=== PATIENT | female | born 1960 | race Caucasian/White ===

== ENCOUNTER 2019-07-27 16:13 | Emergency (ER) | payer MEDICARE, OTHER ==
[~2019-07-27] VITALS: Ht 167.6 cm; Wt 86.2 kg
[~2019-07-27 16:13] MED LIST: DYRENIUM100 MG PO; FLAGYL500 MG PO; HTN MED; HYDROCODONE-AP1 EAC6 PO; OXYCONTIN30 MG PO; PHENERGAN25 MG RE; ZOLOFT
[2019-07-27] MEDS ORDERED: OXYCODONE HCL30 MG PO (16:33)
[2019-07-27] MEDS ORDERED: MIRTAZAPINE7.5 MG PO (16:34)
[2019-07-27] MEDS ORDERED: [UNRECOGNIZED DRUG - OTHER] PO (16:36)
[2019-07-27] MEDS ORDERED: FLEXERIL PO (16:36)
[2019-07-27] MEDS ORDERED: PREDNISONE 10 M10 M1 PO (16:55)
[2019-07-27] MEDS ORDERED: ACYCLOVIR 800800 MG PO (16:55)
[2019-07-27] MEDS ORDERED: NORCO 5-325 TA1 EAC1 PO (16:55)
[2019-07-27 17:05] VITALS: BP 160/80
== END 2019-07-27 17:06 | disposition home or self-care (01) ==
LOC: M.ERS 16:13
DX: B02.9 Zoster without complications (principal); I10 Essential (primary) hypertension; Z91.030 Bee allergy status; Z98.890 Other specified postprocedural states; Z90.49 Acquired absence of other specified parts of digestive tract; Z98.51 Tubal ligation status

== ENCOUNTER 2020-12-24 20:29 | Emergency (ER) | payer MEDICARE, OTHER ==
[~2020-12-24] VITALS: Ht 165.1 cm; Wt 95.3 kg
[~2020-12-24 20:29] MED LIST changes: +ACYCLOVIR 800800 MG PO; +FLEXERIL PO; +MIRTAZAPINE7.5 MG PO; +NORCO 5-325 TA1 EAC1 PO; +OXYCODONE HCL30 MG PO; +PREDNISONE 10 M10 M1 PO; +[UNRECOGNIZED DRUG - OTHER] PO
[2020-12-24] MEDS ORDERED: OMEPRAZOLE 20 M20 M1 PO (20:49)
[2020-12-24] MEDS ORDERED: DESYREL150 MG PO (20:49)
[2020-12-24] MEDS ORDERED: BENADRYL25 MG PO (20:49)
[2020-12-24 21:28] LABS: ABSOLUTE BASOPHILS 0.1 thou/uL (0.0-0.2); ABSOLUTE EOSINOPHILS 0.2 thou/uL (0.0-0.7); ABSOLUTE LYMPHOCYTES 3.1 thou/uL (0.8-5.3); ABSOLUTE MONOCYTES 0.4 thou/uL (0.0-1.2); ABSOLUTE NEUTROPHILS 2.7 thou/uL (1.6-8.1); BASOPHILS 0.8 %; EOSINOPHILS 2.7 %; HEMATOCRIT 45.1 % (37.0-47.0); HEMOGLOBIN 15.1 gm/dL (12.0-15.0); LYMPHOCYTES 48.3 %; MCH 30.4 pg (26.0-34.0); MCHC 33.6 g/dL (28.0-37.0); MCV 90.5 fL (80.0-100.0); MPV 7.5 fl. (7.2-11.1); NUCLEATED RBCS 0 /100WBC; PLATELET COUNT* 302 thou/uL (150-400); POLYS 42.2 %; RBC 4.98 mil/uL (4.20-5.00); RDW-CV 13.7 % (10.5-14.5); WBC 6.5 thou/uL (4.0-11.0)
[2020-12-24 21:38] LABS: CALCIUM 9.3 mg/dL (8.5-10.1); POTASSIUM 4.2 mmol/L (3.5-5.1)
[2020-12-24 21:43] LABS: ALBUMIN 3.5 g/dL (3.4-5.0); TOTAL BILIRUBIN 0.3 mg/dL (<0.1-1.0); TOTAL PROTEIN 6.6 g/dL (6.4-8.2)
[2020-12-24 22:38] LABS: URINE BILIRUBIN NEGATIVE (Negative); URINE BLOOD NEGATIVE (Negative); URINE CLARITY CLEAR; URINE COLOR YELLOW; URINE GLUCOSE-RANDOM NEGATIVE (Negative); URINE KETONES NEGATIVE (Negative); URINE NITRITE-REFLEX NEGATIVE (Negative); URINE PROTEIN NEGATIVE (Negative); URINE SPECIFIC GRAVITY >= 1.030 (1.005-1.030); URINE UROBILINOGEN 0.2 E.U./dl (0.2-1.0)
[2020-12-24 22:41] LABS: URINE LEUKOCYTES-REFLEX 2+ (Negative)
[2020-12-24 22:46] LABS: BACTERIA-REFLEX 1-9 Few /HPF (None Seen); MUCUS 0-3 Light strn/LPF (None Seen); SQUAMOUS >10 Many /LPF (0-3)
[2020-12-24 22:47] LABS: CRYSTALS None Seen /LPF (None Seen); HYALINE CASTS 0-3 Few /LPF (None Seen); URINE RBC None Seen /HPF (0-2); URINE WBC-REFLEX 6-15 Few /HPF (0-5)
[2020-12-25] MEDS ORDERED: KEFLEX500 M1 PO (00:25)
[2020-12-25 00:27] VITALS: BP 164/89
--- NOTE | 2020-12-25 10:20 | EKG ---
[place] [address] ELECTROCARDIOGRAM REPORT Name: SYEDA ANAND Room: [facility]#: [id number] Admission: 12/24/20 Attend Phys: Discharge: 12/25/20 Date of : 62 Date of Service: 12/24/202143 Report #: [id number] THIS REPORT FOR: //name// [facility] ED Test Date: 2020-12-24 Test Time: 21:44:42 Pat Name: SYEDA ANAND Department: Room: Gender: [employer] Counsel[employer]: : 1960 Requested By: Carolina Diaz Order Number: [id number] MD: Ron Chávez Measurements Intervals [place] Rate: 79 P: 42 MS: 130 QRS: 64 QRSD: 91 T: 26 QT: 377 QTc: 433 Interpretive Statements Sinus rhythm Possible left atrial enlargement Abnormal R-wave progression, early transition No previous ECG available for comparison Electronically Signed On 12-25-2020 10:20:11 CDT by Ron Chávez [email or web address] <ELECTRONICALLY SIGNED> By: Ron Chávez MD, [facility] 12/25/20 1020 2144 214 Ron Chávez MD, [facility] /EPI
== END 2020-12-25 00:28 | disposition home or self-care (01) ==
LOC: M.ERS 20:29
PROVIDERS: Personal Emergency Response Attendant
DX: R53.82 Chronic fatigue, unspecified (principal); R53.81 Other malaise; J02.8 Acute pharyngitis due to other specified organisms; B97.89 Other viral agents as the cause of diseases classified elsewhere; Z20.822 Contact with and (suspected) exposure to COVID-19; I10 Essential (primary) hypertension; Z91.030 Bee allergy status; Z98.890 Other specified postprocedural states; Z90.49 Acquired absence of other specified parts of digestive tract